=== PATIENT | male | born 1995 | race Caucasian/White ===

== ENCOUNTER → 2019-09-25 09:27 | Outpatient (CLI) | payer OTHER, SELFPAY ==
[2019-09-25 10:16] LABS: Add Manual Diff / Slide Review NO; Basophils Absolute Auto 0 /uL (0-100); Basophils Percent Auto 0.5 % (0-2); Eosinophils Absolute Auto 0 /uL (0-450); Eosinophils Percent Auto 0.8 % (2-4); Hemoglobin 7.1 g/dL (13.5-17.5); Lymphocytes Absolute Auto 600 /uL (1100-4500); Lymphocytes Percent Auto 15.4 % (25-40); Mean Corpuscular HGB Conc 35.9 % (30-36); Mean Corpuscular Volume 100.2 fL (80-100); Monocytes Absolute Auto 300 /uL (0-900); Neutrophils Absolute Auto 2900 /uL (1500-7000); Neutrophils Percent Auto 74.3 % (50-75); Platelet Count 65 X10^3/uL (150-400); Red Blood Cell Count 1.96 X10^6/uL (4.5-5.9); Red Cell Distribution Width 29.6 % (11.6-14.8); White Blood Cell Count 3.9 X10^3/uL (4.5-11.0)
[2019-09-25 10:37] LABS: Alanine Aminotransferase 125 IU/L (<50); Albumin Globulin Ratio 1.7 (1.0-2.8); Alkaline Phosphatase 71 U/L (38-126); Aspartate Aminotransferase 60 IU/L (17-59); BUN Creatinine Ratio 15.3 (6-22); Bilirubin Total 0.8 mg/dL (0.2-1.3); Blood Urea Nitrogen 13 mg/dL (9-20); Calcium 10.1 mg/dL (8.4-10.2); Carbon Dioxide 23 mmol/L (22-32); Chloride 105 mmol/L (98-107); Estimated Glomerular Filt Rate > 60.0 mL/min (>60); Globulin 2.9 g/dL (1.7-4.1); Glucose 105 mg/dL (70-100); HEMOLYSIS < 15 (0-50); Hematocrit 19.6 % (41-53); Sodium 139 mmol/L (137-145); Total Protein 7.9 g/dL (6.3-8.2)
[2019-09-25 11:04] LABS: Anisocytosis 3+; Macrocytosis 1+
== END ==
PROVIDERS: PCP Family Medicine; Referring Provider Physician Assistant Medical; Visit Provider Physician Assistant Medical
DX: C71.6 Malignant neoplasm of cerebellum (principal)
CPT/HCPCS: 36415; 80053; 85025

== ENCOUNTER → 2019-09-25 10:00 | Oncology outpatient (ONC) | payer OTHER, SELFPAY ==
--- NOTE | 2019-07-27 09:56 | P.CONONC_ITS ---
History of Present Illness - Data of Consult Patient: new to practice Consult date: 07/27/19 Requesting Physician: Galo Penn MD Primary Care Provider: Galo Penn MD - Consult Narrative Reason for consult: Anemia and history of thrombocytopenia Narrative: Doc Adler is a 23 year old male. Patient came in here today accompanied by his . Apparently patient has a remote history of some form of hematological problems. Patient recalled that about in 2009 when he was in his high school he contracted pneumonia. At that time he was found to have a low platelet counts. In addition patient said that he had had bloody nose almost daily when he was in grade school. He was evaluated by a pediatric oncologist at Dr. Esparza at [facility] in [place]. 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 Patient was not able to tell me what the diagnosis was. However patient said for of prolonged period of time, patient had to be monitored and also had multiple bone marrow biopsies. Since then patient has been doing fine until about in November of 2018 when he started noticing headaches, progressive over the next [address] scan on 11/2018 showed a large posterior fossa mass measuring 4 x 4 x 5.2 cm resulting in hydrocephalus and cerebral edema. On 02/07/2019, patient underwent gross total resection of the lesion of the posterior foci lesion by Dr. AIMEE Lewis. The pathology showed medulloblastoma, WHO grade IV, classic histology. In February 2019, after the surgery patient developed infection of pseudomeningocele with swelling at the lower part of the incision. Patient was evaluated and hospitalized at [facility] and had a wash out after an LP concerning for nucleated cells up to 888 and increased protein up to 117. Culture showed Klebsiella. Patient was treated with intravenous antibiotics ceftriaxone later switched to levofloxacin. From 03/30/2019 through 05/17/2019 patient underwent proton CSI radiation therapy plus boost to the surgical cavity. While he was receiving proton radiation therapy, patient developed severe anemia with a hematocrit as low as 18 requiring blood transfusion of 2 units. On 07/05/2019, he was started on lomustine, cisplatin, and vincristine. According to patient, labs are not great. Patient has been instructed to get labs locally. He lives in [place] and his PCP is at [facility]. Therefore Dr. Schwartz sent orders to [facility]. Labs on 07/24/2019 WBC 4.1, RBC 2.39, HGB 8.7, HCT 26.4, MCV 110.5, MCH 36.4, MCHC 33, RDW 14.3, PLT 49, NEUTRO 2.7. And yesterday, PLT was 36. Patient did not have any fever chills. He did not have any nausea vomiting. He is now having fatigue, light headedness and some dizziness. He has felt about the same since Mar 2019. He never got felt better. No fever, no cough, no chills, no breathing problem. According to patient his neuro-oncologist Dr. Anisa Schwartz was worried about the anemia and previous history of hematological problems. Patient was referred to [facility] because patient's insurance require patient be seen within 30 miles. Patient reports pain?: No Home Medications and Allergies Home Medications Medication Instructions Recorded Confirmed Type Lacto.acidophilus-Bif.animalis 1 cap PO DAILY 07/27/19 07/27/19 History [Probiotic] dexamethasone 1 mg PO DAILY 07/27/19 07/27/19 History metoclopramide HCl [Reglan] 10 mg 6XW 07/27/19 07/27/19 History multivitamin [Multiple Vitamins] 1 tab DAILY 07/27/19 07/27/19 History ondansetron HCl [Zofran] 8 mg PO Q12H PRN 07/27/19 07/27/19 History pantoprazole 40 mg PO DAILY 07/27/19 07/27/19 History Allergies Allergy/AdvReac Type Severity Reaction Status Date / Time No Known Drug Allergies Allergy Verified 07/27/19 10:25 Medical History - Medical, Surgical, Family History Medical History: Medical History (Last Updated 07/27/19 @ 13:21 by Mariam Quiroz MD) History of anemia as a child History of thrombocytopenia Pneumonia Surgical History: Surgical History (Last Updated 07/27/19 @ 13:22 by Mariam Quiroz MD) History of craniotomy Onset Date: ~02/07/19 Family History: Family History (Last Updated 07/27/19 @ 13:23 by Mariam Quiroz MD) Father Prostate cancer Father Colon cancer Grandfather Colon cancer - Social History Smoking Status: Never smoker Substance Use Type: does not use Alcohol Intake: never Review of Systems All systems PM: reviewed and no additional remarkable complaints except as stated Exam Vital signs: 07/27/19 13:23 Last Vital Signs Temp 98.3 F 07/27/19 10:21 Pulse 73 07/27/19 10:21 Resp 18 07/27/19 10:21 BP 125/78 07/27/19 10:21 Pulse Ox 99 07/27/19 10:21 Narrative: ECOG 1 Gen: WDWN, NAD, pleasant and cooperative. HEENT: Occipital surgical incision noted well-healed., EOMI, PERRLA, anicteric sclera. Neck: Supple, No palpable thyromegaly or lymphadenopathy. Respiratory: CTAB, no wheezes audible. No JVD Cardiovascular: RRR, S1 and S2 normal, no M/G/R. Abdomen: Soft, NTND, BS normal, no palpable organomegaly Extremities: No LE pitting edema. Lymphatic: no palpable lymph nodes in the neck, axillae, or groins. Neurological: AOx3, CN II-XII grossly intact. No focal motor or sensory deficit. Psychiatric: Normal affect, appropriate mood, no depression, no anxiety. Results - Labs Reviewed Assessment and Plan (1) Thrombocytopenia 23-year-old gentleman with recently diagnosed medulloblastoma status post craniotomy and resection followed by proton radiation therapy now undergoing chemotherapy with lomustine, cisplatin, and vincristine. Patient has had a remote history of anemia and thrombocytopenia when he was about in high school. Exact diagnosis not clear at this moment. I talked with the patient that the current anemia and thrombocytopenia most likely are related to the chemotherapy. However I would recommend that we obtain the medical records from Dr. Esparza at [facility] at [facility]. Meanwhile I recommend that we monitor the blood counts closely until it is stable. Patient voiced understanding. I have tentatively schedule the patient to come back to see me in about a week as a follow-up. (2) Anemia see thrombocytopenia (3) Medulloblastoma He was diagnosed with medulloblasta WHO grade IV status post total gross resection on 02/07/2019 followed by proton radiation therapy from 03/30/2019 through 05/17/2019. He is now on lomustine/cisplatin/vincristine since 07/05/2019. He is now being followed and [facility] Neuro-Oncology Dr. Anisa Schwartz
[2019-07-27 10:21] VITALS: BP 125/78; PULSE 73; RESP 18; TEMP 36.8; O2SAT 99
[2019-08-03 11:56] LABS: Add Manual Diff / Slide Review NO; Basophils Absolute Auto 0 /uL (0-100); Basophils Percent Auto 0.6 % (0-2); Eosinophils Absolute Auto 0 /uL (0-450); Eosinophils Percent Auto 0.6 % (2-4); Lymphocytes Absolute Auto 900 /uL (1100-4500); Lymphocytes Percent Auto 33.1 % (25-40); Mean Corpuscular HGB Conc 35.6 % (30-36); Mean Corpuscular Hemoglobin 37.1 PG (26-34); Mean Corpuscular Volume 104.2 fL (80-100); Monocytes Absolute Auto 400 /uL (0-900); Monocytes Percent Auto 15.7 % (3-14); Neutrophils Absolute Auto 1300 /uL (1500-7000); Red Blood Cell Count 1.86 X10^6/uL (4.5-5.9); Red Cell Distribution Width 16.4 % (11.6-14.8); White Blood Cell Count 2.6 X10^3/uL (4.5-11.0)
[2019-08-03 11:59] LABS: Hematocrit 19.3 % (41-53); Hemoglobin 6.9 g/dL (13.5-17.5)
[2019-08-03 12:00] LABS: Platelet Count 35 X10^3/uL (150-400)
[2019-08-03 12:05] LABS: Alanine Aminotransferase 115 IU/L (<50); Albumin 4.7 g/dL (3.5-5.0); Albumin Globulin Ratio 1.7 (1.0-2.8); Alkaline Phosphatase 64 U/L (38-126); Aspartate Aminotransferase 43 IU/L (17-59); BUN Creatinine Ratio 20.3 (6-22); Bilirubin Total 0.7 mg/dL (0.2-1.3); Blood Urea Nitrogen 16 mg/dL (9-20); Calcium 9.6 mg/dL (8.4-10.2); Carbon Dioxide 22 mmol/L (22-32); Chloride 107 mmol/L (98-107); Estimated Glomerular Filt Rate > 60.0 mL/min (>60); Globulin 2.8 g/dL (1.7-4.1); Glucose 71 mg/dL (70-100); HEMOLYSIS < 15 (0-50); Potassium 3.4 mmol/L (3.4-5.1); Sodium 138 mmol/L (137-145); Total Protein 7.5 g/dL (6.3-8.2)
[2019-08-03 12:30] LABS: Anisocytosis 3+; Poikilocytosis 1+
[2019-08-03 12:31] LABS: Tear Drop Cells 1+
[2019-08-03 12:44] VITALS: BP 125/62; PULSE 64; RESP 18; TEMP 36.7; O2SAT 100
--- NOTE | 2019-08-03 13:04 | ONC.PN ---
PN -Subjective Interval history: ID/CC: 23 year old with medulloblatoma s/p gross total resection followed by CSI radiation and now is getting chemotherapy with lomustine, cisplatin, and vincristine. KENJI Adler is a 23 year old male. Patient came in here today accompanied by his . Apparently patient has a remote history of some form of hematological problems. Patient recalled that about in 2009 when he was in his high school he contracted pneumonia. At that time he was found to have a low platelet counts. In addition patient said that he had had bloody nose almost daily when he was in grade school. He was evaluated by a pediatric oncologist at Dr. Esparza at [facility] in [place]. 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 Patient was not able to tell me what the diagnosis was. However patient said for of prolonged period of time, patient had to be monitored and also had multiple bone marrow biopsies. Since then patient has been doing fine until about in November of 2018 when he started noticing headaches, progressive over the next [address] scan on 01/14/2019 showed a large posterior fossa mass measuring 4 x 4 x 5.2 cm resulting in hydrocephalus and cerebral edema. On 02/07/2019, patient underwent gross total resection of the lesion of the posterior foci lesion by Dr. AIMEE Lewis. The pathology showed medulloblastoma, WHO grade IV, classic histology. In February 2019, after the surgery patient developed infection of pseudomeningocele with swelling at the lower part of the incision. Patient was evaluated and hospitalized at [facility] and had a wash out after an LP concerning for nucleated cells up to 888 and increased protein up to 117. Culture showed Klebsiella. Patient was treated with intravenous antibiotics ceftriaxone later switched to levofloxacin. From 03/30/2019 through 05/17/2019 patient underwent proton CSI radiation therapy plus boost to the surgical cavity. While he was receiving proton radiation therapy, patient developed severe anemia with a hematocrit as low as 18 requiring blood transfusion of 2 units. On 07/05/2019, he was started on lomustine, cisplatin, and vincristine. According to patient, labs are not great. Patient has been instructed to get labs locally. He lives in [place] and his PCP is at [facility]. Therefore Dr. Schwartz sent orders to [facility]. Labs on 07/24/2019 WBC 4.1, RBC 2.39, HGB 8.7, HCT 26.4, MCV 110.5, MCH 36.4, MCHC 33, RDW 14.3, PLT 49, NEUTRO 2.7. And yesterday, PLT was 36. Patient did not have any fever chills. He did not have any nausea vomiting. He is now having fatigue, light headedness and some dizziness. He has felt about the same since Mar 2019. He never got felt better. No fever, no cough, no chills, no breathing problem. According to patient his neuro-oncologist Dr. Anisa Schwartz was worried about the anemia and previous history of hematological problems. Patient was referred to [facility] because patient's insurance require patient be seen within 30 miles. Interval History as of 08/03/2019 Since his previous visit with me on 07/27/2019, I have received and reviewed some medial records from [place]. I will summarize as follows. The records I received contained only multiple bone marrow aspiration and biopsy reports. Doc has had a total of 4 BMA/Bx on 02/13/2010, 12/02/2012, 12/22/2013, and 12/28/2014 respectively. BMA/Bx from 02/13/2010 and 12/02/2012 showed normal cellular BM, normal cytogenetics. BMA/Bx from 12/22/2013 and 12/28/2014 showed hypocellular marrow for age with normal cytogenetics. He presents today scheduled follow up visit. He is reporting light-headedness, and more fatigue. But he reports no fever and no chills. He has minor burst of headache which has been pretty much the same for the last few months. He denies no blood in the tool or urine. - Patient Self-Reported Symptoms SR Constitution: Fatigue/Malaise SR ears, nose, mouth, throat issues: Changes in taste SR Cardiovascular issues: Dizzy/lightheaded SR Gastrointestinal issues: Poor or no appetite, Nausea, Vomiting SR Musculoskeletal issues: Muscle weakness SR Neuro issues: Difficulty balancing SR Hematologic issues: Slow healing, Bleeding/bruising - Additional ROS All systems PM: reviewed and no additional remarkable complaints except as stated (except those noted in HPI, Interval History and SR above.) Home Medications and Allergies Home Medications Medication Instructions Recorded Confirmed Type Lacto.acidophilus-Bif.animalis 1 cap PO DAILY 07/27/19 07/27/19 History [Probiotic] dexamethasone 1 mg PO DAILY 07/27/19 07/27/19 History metoclopramide HCl [Reglan] 10 mg 6XW 07/27/19 07/27/19 History multivitamin [Multiple Vitamins] 1 tab DAILY 07/27/19 07/27/19 History ondansetron HCl [Zofran] 8 mg PO Q12H PRN 07/27/19 07/27/19 History pantoprazole 40 mg PO DAILY 07/27/19 07/27/19 History Allergies Allergy/AdvReac Type Severity Reaction Status Date / Time No Known Drug Allergies Allergy Verified 07/27/19 10:25 Exam Vital signs: Last Vital Signs Temp 98.8 F 08/04/19 14:09 Pulse 68 08/04/19 14:09 Resp 16 08/04/19 14:09 BP 128/86 08/04/19 14:09 Pulse Ox 99 08/04/19 10:23 Narrative: ECOG 1 Gen: WDWN, NAD, pleasant and cooperative, accompanied by his . HEENT: EOMI, PERRLA, anicteric sclera. Neurological: AOx3, CN II-XII grossly intact. No focal motor or sensory deficit. Psychiatric: Normal affect, appropriate mood, no depression, no anxiety. Results - Labs Laboratory Last Values WBC 2.6 X10^3/uL (4.5-11.0) L 08/03/19 11:45 RBC 1.86 X10^6/uL (4.5-5.9) L 08/03/19 11:45 Hgb 6.9 g/dL (13.5-17.5) L* 08/03/19 11:45 Hct 19.3 % (41-53) L* 08/03/19 11:45 MCV 104.2 fL (80-100) H 08/03/19 11:45 MCH 37.1 PG (26-34) H 08/03/19 11:45 MCHC 35.6 % (30-36) 08/03/19 11:45 RDW 16.4 % (11.6-14.8) H 08/03/19 11:45 Plt Count 35 X10^3/uL (150-400) L* 08/03/19 11:45 Neut % (Auto) 50.0 % (50-75) 08/03/19 11:45 Lymph % (Auto) 33.1 % (25-40) 08/03/19 11:45 [place] % (Auto) 15.7 % (3-14) H 08/03/19 11:45 Eos % (Auto) 0.6 % (2-4) L 08/03/19 11:45 Baso % (Auto) 0.6 % (0-2) 08/03/19 11:45 Neut # (Auto) 1300 /uL (4358-1948) L 08/03/19 11:45 Lymph # (Auto) 900 /uL (5719-7674) L 08/03/19 11:45 [place] # (Auto) 400 /uL (0-900) 08/03/19 11:45 Eos # (Auto) 0 /uL (0-450) 08/03/19 11:45 Baso # (Auto) 0 /uL (0-100) 08/03/19 11:45 RBC Morphology Not Reportable 08/03/19 11:45 Poikilocytosis 1+ H 08/03/19 11:45 Anisocytosis 3+ H 08/03/19 11:45 Tear Drop Cells 1+ H 08/03/19 11:45 Sodium 138 mmol/L (137-145) 08/03/19 11:45 Potassium 3.4 mmol/L (3.4-5.1) 08/03/19 11:45 Chloride 107 mmol/L (98-107) 08/03/19 11:45 Carbon Dioxide 22 mmol/L (22-32) 08/03/19 11:45 BUN 16 mg/dL (9-20) 08/03/19 11:45 Creatinine 0.79 mg/dL (0.66-1.25) 08/03/19 11:45 Estimated GFR > 60.0 mL/min (>60) 08/03/19 11:45 BUN/Creatinine Ratio 20.3 (6-22) 08/03/19 11:45 Glucose 71 mg/dL (70-100) 08/03/19 11:45 Calcium 9.6 mg/dL (8.4-10.2) 08/03/19 11:45 Total Bilirubin 0.7 mg/dL (0.2-1.3) 08/03/19 11:45 AST 43 IU/L (17-59) 08/03/19 11:45 ALT 115 IU/L (<50) H 08/03/19 11:45 Alkaline Phosphatase 64 U/L (38-126) 08/03/19 11:45 Total Protein 7.5 g/dL (6.3-8.2) 08/03/19 11:45 Albumin 4.7 g/dL (3.5-5.0) 08/03/19 11:45 Globulin 2.8 g/dL (1.7-4.1) 08/03/19 11:45 Albumin/Globulin Ratio 1.7 (1.0-2.8) 08/03/19 11:45 Assessment and Plan (1) Thrombocytopenia Overview: 23-year-old gentleman with recently diagnosed medulloblastoma status post craniotomy and resection followed by proton radiation therapy now undergoing chemotherapy with lomustine, cisplatin, and vincristine. Patient has had a remote history of anemia and thrombocytopenia when he was about in high school. I have reviewed partial medical records from [place]. Four bone marrow aspiration and biopsy from 2009 through 2014 have not been able to arrive at any specific hematological disorder. The BMA/Bx from 2013 and 2014 did show some hypocelluar marrow with normal 46,XY male karyeotype and without abnormal FISH for MDS. Assessment: I reviewed the laboratory tests from today. His WBC was 2.6, ANC 1.3. H/H 6.9/19.[address] Schwartz thought that the results most likely reflect recent chemotherapy, especially lomustine, which I completely agree. Lomustine is known to cause delayed bone marrow suppression. Patient received his first round of Lomustine/Cisplatin/Vincristine on 07/05/2019. Today, he is reporting light-headedness, and no bleeding events. I told Doc and his that I recommended pRBC transfusion. Will continue monitor weekly. Plan: pRBC 2 units RTC in one week, CBC, CMP (2) Anemia see above discussion thrombocytopenia (3) Medulloblastoma He was diagnosed with medulloblasta WHO grade IV status post total gross resection on 02/07/2019 followed by proton radiation therapy from 03/30/2019 through 05/17/2019. He is now on lomustine/cisplatin/vincristine since 07/05/2019. He is now being followed and [facility] Neuro-Oncology Dr. Anisa Schwartz. Plan: I have talked with Dr. Schwartz this morning. The plan for now is to continue the current chemotherapy at under the care of Dr. Schwartz. I am going to work closely with Dr. Schwartz when Doc comes here during chemotherapy for monitoring of patient's hematological issues given patient's prior history cytopenia.
--- NOTE | 2019-08-03 13:14 | ONC.MSW ---
Description: Financial Assistance Activity: Met with pt and spouse to discuss financial concerns that they are having. CERTIFIED HYPERBARIC TECHNICIAN discussed the availability of the [facility] Medical Relief Fund, as well as provided them [employer] Application forms to address ongoing medical charges. No further needs identified at this time.
[2019-08-03 14:20] VITALS: BP 136/77; PULSE 83; RESP 16; TEMP 36.7
[2019-08-03 14:35] VITALS: BP 129/84; PULSE 90; RESP 18; TEMP 36.7
[2019-08-03 16:48] VITALS: BP 114/70; PULSE 72; RESP 16; TEMP 36.8
[2019-08-04 10:23] VITALS: BP 130/83; PULSE 79; RESP 16; TEMP 37.1; O2SAT 99
[2019-08-04 10:37] VITALS: BP 130/83; PULSE 83; RESP 16; TEMP 37.1
[2019-08-04 10:55] VITALS: BP 127/81; PULSE 72; RESP 14; TEMP 36.9
[2019-08-04 14:09] VITALS: BP 128/86; PULSE 68; RESP 16; TEMP 37.1
--- NOTE | 2019-08-04 14:10 | PC.NURSE ---
PATIENT TOLERATED PRBC TRANSFUSION WITHOUT ANY ADVERSE SYMPTOMS.
--- NOTE | 2019-08-08 14:37 | ONC.PN ---
PN -Subjective Interval history: ID/CC: 23 year old with medulloblatoma s/p gross total resection followed by CSI radiation and now is getting chemotherapy with lomustine, cisplatin, and vincristine. KENJI Adler is a 23 year old male. Patient came in here today accompanied by his . Apparently patient has a remote history of some form of hematological problems. Patient recalled that about in 2009 when he was in his high school he contracted pneumonia. At that time he was found to have a low platelet counts. In addition patient said that he had had bloody nose almost daily when he was in grade school. He was evaluated by a pediatric oncologist at Dr. Esparza at [facility] in [place]. 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 Patient was not able to tell me what the diagnosis was. However patient said for of prolonged period of time, patient had to be monitored and also had multiple bone marrow biopsies. Since then patient has been doing fine until about in November of 2018 when he started noticing headaches, progressive over the next [address] scan on 01/14/2019 showed a large posterior fossa mass measuring 4 x 4 x 5.2 cm resulting in hydrocephalus and cerebral edema. On 02/07/2019, patient underwent gross total resection of the lesion of the posterior foci lesion by Dr. AIMEE Lewis. The pathology showed medulloblastoma, WHO grade IV, classic histology. In February 2019, after the surgery patient developed infection of pseudomeningocele with swelling at the lower part of the incision. Patient was evaluated and hospitalized at [facility] and had a wash out after an LP concerning for nucleated cells up to 888 and increased protein up to 117. Culture showed Klebsiella. Patient was treated with intravenous antibiotics ceftriaxone later switched to levofloxacin. From 03/30/2019 through 05/17/2019 patient underwent proton CSI radiation therapy plus boost to the surgical cavity. While he was receiving proton radiation therapy, patient developed severe anemia with a hematocrit as low as 18 requiring blood transfusion of 2 units. On 07/05/2019, he was started on lomustine, cisplatin, and vincristine. According to patient, labs are not great. Patient has been instructed to get labs locally. He lives in [place] and his PCP is at [facility]. Therefore Dr. Schwartz sent orders to [facility]. Labs on 07/24/2019 WBC 4.1, RBC 2.39, HGB 8.7, HCT 26.4, MCV 110.5, MCH 36.4, MCHC 33, RDW 14.3, PLT 49, NEUTRO 2.7. And yesterday, PLT was 36. Patient did not have any fever chills. He did not have any nausea vomiting. He is now having fatigue, light headedness and some dizziness. He has felt about the same since Mar 2019. He never got felt better. No fever, no cough, no chills, no breathing problem. According to patient his neuro-oncologist Dr. Anisa Schwartz was worried about the anemia and previous history of hematological problems. Patient was referred to [facility] because patient's insurance require patient be seen within 30 miles. Interval History as of 08/03/2019 Since his previous visit with me on 07/27/2019, I have received and reviewed some medial records from [place]. I will summarize as follows. The records I received contained only multiple bone marrow aspiration and biopsy reports. Doc has had a total of 4 BMA/Bx on 02/13/2010, 12/02/2012, 12/22/2013, and 12/28/2014 respectively. BMA/Bx from 02/13/2010 and 12/02/2012 showed normal cellular BM, normal cytogenetics. BMA/Bx from 12/22/2013 and 12/28/2014 showed hypocellular marrow for age with normal cytogenetics. He presents today scheduled follow up visit. He is reporting light-headedness, and more fatigue. But he reports no fever and no chills. He has minor burst of headache which has been pretty much the same for the last few months. He denies no blood in the tool or urine. Interval History as of 08/08/2019 Patient presents here today by himself. Patient reports no fever and no chills. Patient denies any nausea vomiting. No diarrhea and no constipation. - Patient Self-Reported Symptoms SR Constitution: Fatigue/Malaise SR ears, nose, mouth, throat issues: Changes in taste SR Cardiovascular issues: Dizzy/lightheaded SR Gastrointestinal issues: Poor or no appetite, Nausea, Vomiting SR Musculoskeletal issues: Muscle weakness SR Neuro issues: Difficulty balancing SR Hematologic issues: Slow healing, Bleeding/bruising - Additional ROS All systems PM: reviewed and no additional remarkable complaints except as stated Home Medications and Allergies Home Medications Medication Instructions Recorded Confirmed Type Lacto.acidophilus-Bif.animalis 1 cap PO DAILY 07/27/19 08/08/19 History [Probiotic] dexamethasone 1 mg PO DAILY 07/27/19 08/08/19 History metoclopramide HCl [Reglan] 10 mg 6XW 07/27/19 08/08/19 History multivitamin [Multiple Vitamins] 1 tab DAILY 07/27/19 08/08/19 History ondansetron HCl [Zofran] 8 mg PO Q12H PRN 07/27/19 08/08/19 History pantoprazole 40 mg PO DAILY 07/27/19 08/08/19 History Allergies Allergy/AdvReac Type Severity Reaction Status Date / Time No Known Drug Allergies Allergy Verified 07/27/19 10:25 Exam Vital signs: 08/13/19 14:49 Last Vital Signs Temp 98.8 F 08/04/19 14:09 Pulse 82 08/08/19 14:42 Resp 16 08/08/19 14:42 BP 122/76 08/08/19 14:42 Pulse Ox 100 08/08/19 14:42 Narrative: ECOG 1 Gen: WDWN, NAD, pleasant and cooperative, accompanied by his . HEENT: EOMI, PERRLA, anicteric sclera. Neurological: AOx3, CN II-XII grossly intact. No focal motor or sensory deficit. Psychiatric: Normal affect, appropriate mood, no depression, no anxiety. Results - Labs Laboratory Last Values WBC 2.6 X10^3/uL (4.5-11.0) L 08/03/19 11:45 RBC 1.86 X10^6/uL (4.5-5.9) L 08/03/19 11:45 Hgb 6.9 g/dL (13.5-17.5) L* 08/03/19 11:45 Hct 19.3 % (41-53) L* 08/03/19 11:45 MCV 104.2 fL (80-100) H 08/03/19 11:45 MCH 37.1 PG (26-34) H 08/03/19 11:45 MCHC 35.6 % (30-36) 08/03/19 11:45 RDW 16.4 % (11.6-14.8) H 08/03/19 11:45 Plt Count 35 X10^3/uL (150-400) L* 08/03/19 11:45 Neut % (Auto) 50.0 % (50-75) 08/03/19 11:45 Lymph % (Auto) 33.1 % (25-40) 08/03/19 11:45 [place] % (Auto) 15.7 % (3-14) H 08/03/19 11:45 Eos % (Auto) 0.6 % (2-4) L 08/03/19 11:45 Baso % (Auto) 0.6 % (0-2) 08/03/19 11:45 Neut # (Auto) 1300 /uL (6017-3345) L 08/03/19 11:45 Lymph # (Auto) 900 /uL (3899-9959) L 08/03/19 11:45 [place] # (Auto) 400 /uL (0-900) 08/03/19 11:45 Eos # (Auto) 0 /uL (0-450) 08/03/19 11:45 Baso # (Auto) 0 /uL (0-100) 08/03/19 11:45 RBC Morphology Not Reportable 08/03/19 11:45 Poikilocytosis 1+ H 08/03/19 11:45 Anisocytosis 3+ H 08/03/19 11:45 Tear Drop Cells 1+ H 08/03/19 11:45 Sodium 138 mmol/L (137-145) 08/03/19 11:45 Potassium 3.4 mmol/L (3.4-5.1) 08/03/19 11:45 Chloride 107 mmol/L (98-107) 08/03/19 11:45 Carbon Dioxide 22 mmol/L (22-32) 08/03/19 11:45 BUN 16 mg/dL (9-20) 08/03/19 11:45 Creatinine 0.79 mg/dL (0.66-1.25) 08/03/19 11:45 Estimated GFR > 60.0 mL/min (>60) 08/03/19 11:45 BUN/Creatinine Ratio 20.3 (6-22) 08/03/19 11:45 Glucose 71 mg/dL (70-100) 08/03/19 11:45 Calcium 9.6 mg/dL (8.4-10.2) 08/03/19 11:45 Total Bilirubin 0.7 mg/dL (0.2-1.3) 08/03/19 11:45 AST 43 IU/L (17-59) 08/03/19 11:45 ALT 115 IU/L (<50) H 08/03/19 11:45 Alkaline Phosphatase 64 U/L (38-126) 08/03/19 11:45 Total Protein 7.5 g/dL (6.3-8.2) 08/03/19 11:45 Albumin 4.7 g/dL (3.5-5.0) 08/03/19 11:45 Globulin 2.8 g/dL (1.7-4.1) 08/03/19 11:45 Albumin/Globulin Ratio 1.7 (1.0-2.8) 08/03/19 11:45 Blood Type O Positive 08/03/19 11:45 Antibody Screen Negative 08/03/19 11:45 Crossmatch See Detail 08/03/19 11:45 Assessment and Plan (1) Thrombocytopenia Overview: 23-year-old gentleman with recently diagnosed medulloblastoma status post craniotomy and resection followed by proton radiation therapy now undergoing chemotherapy with lomustine, cisplatin, and vincristine. Patient has had a remote history of anemia and thrombocytopenia when he was about in high school. I have reviewed partial medical records from [place]. Four bone marrow aspiration and biopsy from 2009 through 2014 have not been able to arrive at any specific hematological disorder. The BMA/Bx from 2013 and 2014 did show some hypocelluar marrow with normal 46,XY male karyeotype and without abnormal FISH for MDS. Assessment: I reviewed the laboratory tests from 08/07/2019. His WBC was 3.1, ANC 1.9. H/H 8.2/24.5 and PLT 53. The results are improving compared with his tests on 08/03/2019. Her CMP are normal except ALT of 126. I talked with him to Plan: No blood transfusion indicated RTC in one week, CBC, CMP (2) Anemia see above discussion thrombocytopenia (3) Medulloblastoma He was diagnosed with medulloblasta WHO grade IV status post total gross resection on 02/07/2019 followed by proton radiation therapy from 03/30/2019 through 05/17/2019. He is now on lomustine/cisplatin/vincristine since 07/05/2019. He is now being followed and [facility] Neuro-Oncology Dr. Anisa Schwartz. Plan: Continue chemotherapy per Dr. Schwartz at [facility]
[2019-08-08 14:42] VITALS: BP 122/76; PULSE 82; RESP 16; O2SAT 100
--- NOTE | 2019-08-16 13:25 | ONC.SCHED ---
Per patient's , Dr. Schwartz proceeding with chemo.
--- NOTE | 2019-09-05 15:52 | PC.NURSE ---
PATIENT H/H 5.8/17.7 REPORTED BY NURSE AT [facility] WHERE PATIENT RECEIVING TREATMENT. PER DR SLADE PATIENT TO RECEIVE 2 UNITS PRBCS BY WEDNESDAY. BLOOD ORDERED AND BLOOD BANK NOTIFIED. PATIENT NOTIFIED TO COME IN FOR TYPE AND SCREEN AND THEN TO GO TO ACUTE CARE FLOOR FOR THE TRANSFUSION. JESSICA RAYGOZA NOTIFIED ON ACUTE CARE FLOOR. SHE SAID SHE SPOKE WITH AND INFORMED HER THAT NO VISITORS ALLOWED DUE TO COVID.
[2019-09-06] VITALS (8 sets, daily range): BP systolic 118–139; BP diastolic 67–78; PULSE 75–89; RESP 14–16; TEMP 36.8–37.2; O2SAT 100
[2019-09-06 07:36] LABS: Add Manual Diff / Slide Review NO; Basophils Absolute Auto 0 /uL (0-100); Basophils Percent Auto 0.4 % (0-2); Eosinophils Absolute Auto 0 /uL (0-450); Eosinophils Percent Auto 0.6 % (2-4); Lymphocytes Absolute Auto 1000 /uL (1100-4500); Mean Corpuscular HGB Conc 35.1 % (30-36); Mean Corpuscular Hemoglobin 35.5 PG (26-34); Mean Corpuscular Volume 100.9 fL (80-100); Monocytes Absolute Auto 400 /uL (0-900); Neutrophils Absolute Auto 3100 /uL (1500-7000); Platelet Count 99 X10^3/uL (150-400); Red Blood Cell Count 1.77 X10^6/uL (4.5-5.9); Red Cell Distribution Width 29.2 % (11.6-14.8); White Blood Cell Count 4.5 X10^3/uL (4.5-11.0)
--- NOTE | 2019-09-06 07:44 | PC.NURSE ---
Addendum entered by Ld Umaña R.N. 09/06/19 13:20: Patient tolerated infusions of 2 units prbc without adverse symptoms. IV dc'd intact. Original Note: Pt arrived on the AC floor at approx. 0730. He was made comfortable in room 201. Vital Signs taken. Blood consent signed.
[2019-09-06 07:49] LABS: Alanine Aminotransferase 107 IU/L (<50); Albumin 4.8 g/dL (3.5-5.0); Albumin Globulin Ratio 1.8 (1.0-2.8); Alkaline Phosphatase 69 U/L (38-126); Aspartate Aminotransferase 47 IU/L (17-59); BUN Creatinine Ratio 10.6 (6-22); Bilirubin Total 0.5 mg/dL (0.2-1.3); Blood Urea Nitrogen 9 mg/dL (9-20); Calcium 9.7 mg/dL (8.4-10.2); Carbon Dioxide 23 mmol/L (22-32); Chloride 107 mmol/L (98-107); Estimated Glomerular Filt Rate > 60.0 mL/min (>60); Globulin 2.7 g/dL (1.7-4.1); Glucose 111 mg/dL (70-100); HEMOLYSIS < 15 (0-50); Potassium 3.7 mmol/L (3.4-5.1); Sodium 141 mmol/L (137-145); Total Protein 7.5 g/dL (6.3-8.2)
[2019-09-06 08:16] LABS: Hematocrit 17.8 % (41-53); Hemoglobin 6.3 g/dL (13.5-17.5)
[2019-09-06 08:23] LABS: Anisocytosis 3+; Macrocytosis 1+
--- NOTE | 2019-09-21 13:32 | PC.NURSE ---
Dr. Quiroz reviewed pt's recent labs, 2 unit of blood ordered. Pt requesting to receive blood transfusion on Wednesday at his appt with Dr. Quiroz. Dr. Quiroz agreeable. Plan for pt to get type, screened, and banded at main lab tomorrow and will receive product on Wednesday the in clinic. Estevan in lab aware of plan. Pt's , Jessica notified and instructed of plan, verbalized understanding. Pt's neuro-oncologist aware of lab results and plan to transfuse on Wednesday.
--- NOTE | 2019-09-25 10:18 | P.PNONC_ITS ---
PN -Subjective Interval history: ID/CC: 23 year old with medulloblatoma s/p gross total resection followed by CSI radiation and now is now getting chemotherapy with lomustine, cisplatin, and vincristine under the care of Dr. Lana Roach Kami Adler is a 23 year old male. Apparently patient has a remote history of some form of hematological problems. Patient recalled that about in 2009 when he was in his high school when he contracted pneumonia. At that time he was found to have a low platelet counts. In addition patient said that he had had bloody nose almost daily when he was in grade school. He was evaluated by a pediatric oncologist at Dr. Esparza at [facility] in [place]. Doc has had a total of 4 BMA/Bx on 02/13/2010, 12/02/2012, 12/22/2013, and 12/28/2014 respectively. BMA/Bx from 02/13/2010 and 12/02/2012 showed normal cellular BM, normal cytogenetics. BMA/Bx from 12/22/2013 and 12/28/2014 showed hypocellular marrow for age with normal cytogenetics. Since then patient has been doing fine until about in November of 2018 when he started noticing headaches, progressive over the next [address] scan on 01/14/2019 showed a large posterior fossa mass measuring 4 x 4 x 5.2 cm resulting in hydrocephalus and cerebral edema. On 02/07/2019, patient underwent gross total resection of the lesion of the posterior foci lesion by Dr. AIMEE Lewis. The pathology showed medulloblastoma, WHO grade IV, classic histology. In February 2019, after the surgery patient developed infection of pseudomeningocele with swelling at the lower part of the incision. Patient was evaluated and hospitalized at [facility] and had a wash out after an LP concerning for nucleated cells up to 888 and increased protein up to 117. Culture showed Klebsiella. Patient was treated with intravenous antibiotics ceftriaxone later switched to levofloxacin. From 03/30/2019 through 05/17/2019 patient underwent proton CSI radiation therapy plus boost to the surgical cavity. While he was receiving proton radiation therapy, patient developed severe anemia with a hematocrit as low as 18 requiring blood transfusion of 2 units. On 07/05/2019, he was started on lomustine, cisplatin, and vincristine. According to patient his neuro-oncologist Dr. Vyshak Venur was worried about the anemia and previous history of hematological problems. Patient was referred to [facility] because patient's insurance require patient be seen within 30 miles. Interval History as of 09/25/2019 Patient is now getting chemotherapy under the care of Dr. Sarmiento at [facility]. He presents here today by himself for blood transfusion. His H/H were 7.1/19.6. He just completed 2 units and tolerated well. Patient reports no fever and no chills. He is complaining mild to moderate nause. No diarrhea and no constipation. - Patient Self-Reported Symptoms SR Constitution: Fatigue/Malaise SR ears, nose, mouth, throat issues: Changes in taste SR Cardiovascular issues: Dizzy/lightheaded SR Skin issues: Dry skin SR Gastrointestinal issues: Poor or no appetite, Heartburn SR Musculoskeletal issues: Muscle weakness SR Neuro issues: Difficulty balancing SR Hematologic issues: Slow healing, Bleeding/bruising - Additional ROS All systems PM: reviewed and no additional remarkable complaints except as stated Home Medications and Allergies Home Medications Medication Instructions Recorded Confirmed Type Lacto.acidophilus-Bif.animalis 1 cap PO DAILY 07/27/19 08/08/19 History [Probiotic] dexamethasone 1 mg PO DAILY 07/27/19 08/08/19 History metoclopramide HCl [Reglan] 10 mg 6XW 07/27/19 08/08/19 History multivitamin [Multiple Vitamins] 1 tab DAILY 07/27/19 08/08/19 History ondansetron HCl [Zofran] 8 mg PO Q12H PRN 07/27/19 08/08/19 History pantoprazole 40 mg PO DAILY 07/27/19 08/08/19 History Allergies Allergy/AdvReac Type Severity Reaction Status Date / Time No Known Drug Allergies Allergy Verified 07/27/19 10:25 Exam Vital signs: 09/25/19 17:26 Last Vital Signs Temp 98.0 F 09/25/19 16:00 Pulse 76 09/25/19 16:00 Resp 16 09/25/19 16:00 BP 124/55 L 09/25/19 16:00 Pulse Ox 100 09/06/19 07:42 Narrative: ECOG 1 Gen: WDWN, NAD, pleasant and cooperative HEENT: EOMI, PERRLA, anicteric sclera. Neurological: AOx3, CN II-XII grossly intact. No focal motor or sensory deficit. Psychiatric: Normal affect, appropriate mood, no depression, no anxiety. Results - Labs WBC 3.9, H/H 7.1/19.6, PLT 65 Assessment and Plan (1) Medulloblastoma Overview: 23-year-old gentleman with recently diagnosed medulloblasta WHO grade IV status post total gross resection on 02/07/2019 followed by proton radiation therapy from 03/30/2019 through 05/17/2019. He is now on lomustine/cisplatin/vincristine since 07/05/2019. He is now being followed and [facility] Neuro- Oncology Dr. Anisa Schwartz. Patient has had a remote history of anemia and thrombocytopenia when he was about in high school. I have reviewed partial medical records from [place]. Four bone marrow aspiration and biopsy from 2009 through 2014 have not been able to arrive at any specific hematological disorder. The BMA/Bx from 2013 and 2014 did show some hypocelluar marrow with normal 46,XY male karyeotype and without abnormal FISH for MDS. Assessment: I told patient that he overall has been doing relatively well during the chemotherapy with lomustine, cisplatin, and vincristine under the care of Dr. Schwartz. I will work closely with Dr. Schwartz in terms of supportive care at [facility]. He voiced understanding. Plan: Continue Chemotherapy at [facility] per Dr. Schwartz pRBC transfusion threshold: H/H 12/31 Platelet transfusion threshold: 20K or bleeding pRBC 2 units today No platelet transfusion RTC PRN
[2019-09-25 10:51] VITALS: BP 110/73; PULSE 100; RESP 18; TEMP 37.3
[2019-09-25 11:13] VITALS: BP 117/67; PULSE 82; RESP 16; TEMP 36.7
--- NOTE | 2019-09-25 12:13 | PC.NURSE ---
pt arrived nauseated. just now vomited. stated took antiemetic this morning and will be fine. states, I get really cold, bundle up. Just before I vomit, I get hot and the blankets come off. pt resting on stretcher.
[2019-09-25 13:13] VITALS: BP 138/77; PULSE 73; RESP 16; TEMP 36.9
[2019-09-25 13:42] VITALS: BP 138/77; PULSE 73; RESP 16; TEMP 36.9
[2019-09-25 14:03] VITALS: BP 123/74; PULSE 86; RESP 18; TEMP 36.9
[2019-09-25 16:00] VITALS: BP 124/55; PULSE 76; RESP 16; TEMP 36.7
== END ==
PROVIDERS: PCP Family Medicine; Referring Provider Family Medicine; Visit Provider Internal Medicine Hematology & Oncology
DX: C71.6 Malignant neoplasm of cerebellum (principal); D47.3 Essential (hemorrhagic) thrombocythemia; D64.9 Anemia, unspecified
CPT/HCPCS: 36415; 36430; 80053; 85025; 86850; 86900; 86901; 86945; 99204; 99214; P9016; P9040